=== PATIENT | male | born 1955 | race Caucasian/White ===

== ENCOUNTER → 2021-12-22 | Outpatient (CLI) | payer MEDICARE ==
--- NOTE | 2021-12-22 13:58 | CT ---
EXAMINATION TYPE: CT chest w con DATE OF EXAM: 12/22/2021 COMPARISON: None available HISTORY: Strong family history of lung, trachea and bronchus cancer. CT DLP: 583.5 mGycm Automated exposure control for dose reduction was used. TECHNIQUE: CT scan of the chest is performed with IV Contrast, patient injected with 80ml mL of Isovue 300. FINDINGS: LUNGS: Scattered small areas of subtle groundglass opacities seen in both lung roberto (arrows in seri es #4), nonspecific. Unremarkable lungs otherwise. Patent central airways. No pleural effusion. MEDIASTINUM: There are no greater than 1 cm hilar or mediastinal lymph nodes. No gross cardiomegaly. Scattered arterial and coronary atherosclerotic calcifications. No pericardial effusion is seen. OTHER: Hepatic steatosis. Degenerative changes of the thoracic spine. IMPRESSION: Scattered bilateral pulmonary areas of subtle groundglass opacities as described above, likely inflam matory/infectious in etiology. However, considering the family history of lung cancer, follow-up CT s can in 3 months should be considered. Otherwise no suspicious lung lesion or lymphadenopathy identifi ed. Incidental findings as described above.
== END | disposition home or self-care (01) ==
LOC: RADCTMAIN 11:10
PROVIDERS: ATTEND Family Medicine
DX: R91.8 Other nonspecific abnormal finding of lung field (principal); Z80.1 Family history of malignant neoplasm of trachea, bronchus and lung
CPT/HCPCS: 82565; 84520; 71260; 36415; Q9967

== ENCOUNTER → 2022-03-27 | Outpatient (CLI) | payer MEDICARE ==
--- NOTE | 2022-03-27 09:23 | CT ---
EXAMINATION TYPE: CT chest w con DATE OF EXAM: 03/27/2022 COMPARISON: 12/22/2021 HISTORY: Other pleural condition. Family hx lung ca CT DLP: 643.4 mGycm Automated exposure control for dose reduction was used. CONTRAST: CT scan of the chest is performed with IV Contrast, patient injected with 100 mL of Isovue 300. FINDINGS: LUNGS: The lungs are grossly clear, there is no concerning parenchymal mass or nodule identified. T here is no pleural effusion or pneumothorax seen. The tracheobronchial tree is patent. Previously no shaji areas of groundglass infiltrate have resolved in the interval. No new areas of infiltrate are see n. MEDIASTINUM: There are no greater than 1 cm hilar or mediastinal lymph nodes. No pericardial effusi on is seen. Thoracic aorta is of normal caliber. The heart is not enlarged. UPPER ABDOMEN: There is evidence of mild hepatic steatosis. OTHER: No additional significant abnormality is seen. IMPRESSION: Previously noted areas of groundglass infiltrate have resolved in the interval. No new areas of infil trate are seen.
== END ==
LOC: RADCTMAIN 07:59
PROVIDERS: ATTEND Family Medicine
DX: J94.8 Other specified pleural conditions (principal); R91.8 Other nonspecific abnormal finding of lung field
CPT/HCPCS: 82565; 84520; 71260; 36415; Q9967

== ENCOUNTER → 2025-03-10 | Outpatient (CLI) | payer MEDICARE ==
--- NOTE | 2025-03-10 10:57 | CT ---
EXAMINATION TYPE: CT chest wo con DATE OF EXAM: 03/10/2025 10:21 AM COMPARISON: 03/27/2022. CLINICAL INDICATION: Male, 69 years old with history of R91.1 SOLITARY PULMONAR Y NODULE; PHH, nodules, family hx of lung ca TECHNIQUE: Multiple axial images were obtained through the chest. Sagittal and coronal reformats were created for review. MIP was performed on a separate workstation. Contrast used: mL of (None if empty) Oral contrast used: (None if empty) CT DLP: 543.6 mGycm, Automated exposure control for dose reduction was used. FINDINGS: LUNGS/ PLEURA: No focal consolidation, pneumothorax or pleural effusion. AIRWAY: Patent and unremarkable. HEART: Size within normal limits. Mild coronary artery calcifications present. MEDIASTINUM: No gross evidence of adenopathy. VASCULATURE: No aortic aneurysm. MUSCULOSKELETAL: Moderate disc degeneration changes are present throughout the thoracolumbar spine se condary to osteophyte formation and facet joint arthropathy. SOFT TISSUES/LYMPH NODES: Unremarkable. LOWER NECK: No significant findings. UPPER ABDOMEN: No significant findings. IMPRESSION: 1. No clinically significant pulmonary nodules. 2. No acute intrathoracic process. 3. 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 4. Follow up recommendations for incidental pulmonary nodules, if there are any, are per [employer] or [employer]. [email or web address] [email or web address] Julian, , 03/10/2025 10:54 AM
== END | disposition home or self-care (01) ==
LOC: RADCTMAIN 10:05
PROVIDERS: ATTEND Family Medicine
DX: R91.1 Solitary pulmonary nodule (principal); M47.814 Spondylosis without myelopathy or radiculopathy, thoracic region
CPT/HCPCS: 71250